=== PATIENT | female | born 1940 | race Caucasian/White ===

== ENCOUNTER 2017-02-14 06:04 | Day surgery (SDC) | payer MEDICARE, BC ==
[~2017-02-14 06:04] MED LIST: Buffered Lidocaine 0.9% SYRIN* 5 ML/SYR SYRINGE INTRADERM ONE; Sodium Citrate/Citric Acid* 15 ML UDC PO ONE
[2017-02-14] MEDS ORDERED: Sodium Citrate/Citric Acid* 15 ML UDC ONE ×2 (06:58→06:59)
[2017-02-14] MEDS ORDERED: ceFAZolin 2 GM PREMIX (*) 2 GM/50 ML BAG IVPB ONE (06:58)
[2017-02-14] MEDS ORDERED: Buffered Lidocaine 0.9% SYRIN* 5 ML/SYR SYRINGE ONE (06:59)
[2017-02-14] MEDS ORDERED: Bupivacaine 0.25% SDV* 30 ML ONE (07:23)
[2017-02-14] MEDS ORDERED: Midazolam* 1 MG/ML 2 ML VIAL (2 MG) ONE (07:28)
[2017-02-14] MEDS ORDERED: fentaNYL* 50 MCG/ML 2 ML VIAL (100 MCG VIAL) ONE (07:28)
[2017-02-14] MEDS ORDERED: Lidocaine 2% PF * 5 ML VIAL ONE (07:29)
[2017-02-14] MEDS ORDERED: Propofol* 10 MG/ML 20 ML BTL IV PUSH ONE ×2 (07:29→10:38)
[2017-02-14] MEDS ORDERED: Ondansetron INJ* 2 MG/ML VIAL IV PRN (07:49)
[2017-02-14] MEDS ORDERED: fentaNYL* 50 MCG/ML 2 ML VIAL (100 MCG VIAL) IV PRN (07:49)
[2017-02-14] MEDS ORDERED: Dexamethasone IV* 4 MG/ML 1 ML (4 MG) ONE (09:21)
[2017-02-14] MEDS ORDERED: Succinylcholine* 20 MG/ML 10 ML VIAL ONE (10:38)
[2017-02-14] MEDS ORDERED: HYDROcodone/ACETAMIN 5-325 MG* 1 TAB ONE (11:08)
[2017-02-14 13:32] VITALS: BP 151/79
--- NOTE | 2017-02-14 21:19 | RAD ---
INDICATION: Osteoarthritis LEFT second finger. COMPARISON: April 09, 2016 TECHNIQUE: 22.5 seconds fluoroscopy. FINDINGS: Spot image documents a reamer instrument at the distal aspect of the second metacarpal. IMPRESSION: Procedural fluoroscopy. CPT II Codes: 6045F
--- NOTE | 2017-02-15 08:56 | OP ---
DATE OF OPERATION: 02/14/17 [facility] DATE OF : 44 SURGEON: Mohit Nix MD DRUG DEPARTMENT WORKER: ANAHY Pedroza ANESTHESIOLOGIST: Dr. Hernandez. ANESTHESIA: General. PRE-OP DIAGNOSES: 1. Left index finger metacarpophalangeal joint arthrosis. 2. 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 POST-OP DIAGNOSES: 1. Left index finger metacarpophalangeal joint arthrosis. 2. 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 OPERATIVE PROCEDURE: 1. Left index finger metacarpophalangeal joint arthroplasty with Integra pyrocarbon implant. 2. Reconstruction of left index finger metacarpophalangeal joint radial collateral ligament with #2 FiberWire and local tissue. 3. Left index finger extensor tendon centralization. INDICATIONS: Deanna had an injury about 3 years back. She underwent, after a couple of months, a left index finger metacarpophalangeal joint radial collateral ligament reconstruction; this failed. The joint had gone on to be subluxated volarly and ulnarly, with ulnar deviation at the joint. When she flexes the finger down, the index finger rotates under or over the middle finger. There is associated pain and discomfort. I talked to her about her options. She wanted to proceed with surgery. She has been dealing with this for quite some time and has been following with me in the office for quite some time. She certainly understands the risks of implant failure or continued underlapping or overlapping of the fingers or need for further surgery. ESTIMATED BLOOD LOSS: 5 mL. COMPLICATIONS: None. FINDINGS: Severe full-thickness cartilage loss on both the metacarpal head and base of the proximal phalanx. DESCRIPTION OF PROCEDURE: Deanna was seen in the preoperative holding area. The correct side, site, and procedure were identified. We came back to the operating room and the arm was then prepped and draped in the usual fashion. A time-out was performed. The arm was exsanguinated with the Esmarch and the tourniquet inflated to 250 mmHg. I used her prior dorsal MCP joint incision, which was a longitudinal incision going right over the dorsum of the joint. Full-thickness flaps were raised off of the extensor mechanism. The EIP tendon was completely subluxated into the ulnar gutter. The ulnar sagittal band was released. The attenuated tissue between the EDC and the EIP tendons was debrided. The capsule was incised longitudinally and reflected back radially and ulnarly. The metacarpal head and joint was invisible. There was full-thickness cartilage loss throughout the entirety of the joint. I went ahead and placed my guide pin and placed a guide for the Integra pyrocarbon MCP replacement. This was confirmed on fluoroscopy to be in the correct position. I did place the drill guide and made a drill cut just distal to the ulnar collateral ligament and radial collateral ligament attachments. The radial collateral ligament was obviously very attenuated. The metacarpal head was resected. I then placed my guide. I then used the theron to open up the base of the proximal phalanx in the center- center position. A starting guide was placed and confirmed on fluoroscopy. A drill guide was placed and a cut was made. I only resected a millimeter or two off the base of the proximal phalanx. The redundant synovial tissue was excised. I then broached up the proximal phalanx to a size 30. I then went ahead and I did use the theron to create an appropriate cortical window through the subchondral bone proximally. I then broached up to a size 30 metacarpal implant. The position of all of the broaching was confirmed with fluoroscopy. After I had selected the appropriate sized implant, I went ahead and removed the broaches. I then used the 1.6 mm drill to make a drill hole on the radial side of the both the metacarpal head and base of the proximal phalanx at the 11 o'clock and 7 o'clock positions. I placed a #2 FiberWire through the drill holes in a figure- of-eight fashion. Once I had the FiberWire in place, I went ahead and placed my arthroplasty implant in standard fashion. The finger was set in the appropriate position and the #2 FiberWire was tensioned and tied off. I then took my #3 Ethibond suture and augmented this with repair of the local tissue that was present, to complete the radial collateral ligament reconstruction. At this point, I went ahead and irrigated out the wound. The finger was moving very nicely. We had turned back just the right amount volarly and had a very nice fit of the implant. The MCP joint hyperextended about 10 degrees, flexed down easily. I then went ahead and closed the capsule with a 4-0 Vicryl suture with the knot buried. The extensor tendons were then centralized by releasing the radial sagittal band and then suturing the EDC to the EIP to centralize the EIP. I then closed the radial sagittal band in pants- over-vest fashion to centralize the extensor tendon. With the extensor tendon centralized and the finger in a very nice position and the radial collateral ligament very stable on exam, I went ahead and closed the skin with 4-0 Monocryl suture. The wound was infiltrated with 0.25% plain Marcaine. The wound was dressed with Xeroform, 4x4's, sterile Webril and then a splint was placed holding the MCP joint in full extension and 10 degrees of flexion for allowing for some motion at the PIP joint and DIP joints. The radial collateral ligament was protected by the splint. The tourniquet was deflated and the hand pinked up immediately. She was then woken up and taken to the recovery room in stable condition. [id number]/[facility] #: [id number] WIL
== END 2017-02-14 14:28 | disposition home or self-care (01) ==
LOC: OR 06:04
PROVIDERS: ATTEND Orthopaedic Surgery Hand Surgery
DX: M19.042 Primary osteoarthritis, left hand (principal); S63.411 Traumatic rupture of collateral ligament of left index finger at metacarpophalangeal and interphalangeal joint; X58.XXXD Exposure to other specified factors, subsequent encounter; Y92.9 Unspecified place or not applicable; I10 Essential (primary) hypertension; E78.00 Pure hypercholesterolemia, unspecified; K21.9 Gastro-esophageal reflux disease without esophagitis; M19.90 Unspecified osteoarthritis, unspecified site; F32.9 Major depressive disorder, single episode, unspecified; Z87.891 Personal history of nicotine dependence
CPT/HCPCS: 73140; A9270-GY; C1776; J0330; J0690; J1100; J2250; J2704; J3010

== ENCOUNTER 2019-02-15 09:48 | Day surgery (SDC) | payer MEDICARE, BC ==
[~2019-02-15 09:48] MED LIST changes: -Buffered Lidocaine 0.9% SYRIN* 5 ML/SYR SYRINGE INTRADERM ONE; +Buffered Lidocaine 1% SYRIN* 1 ML/SYRINGE INTRADERM ONE; +Lactated Ringers 1000 ML Bag* 1,000 ML IV SCH
[2019-02-15] MEDS ORDERED: Sodium Citrate/Citric Acid* 15 ML UDC ONE (10:02)
[2019-02-15] MEDS ORDERED: ceFAZolin 2 GM in NS PREMIX(*) 2 GM/100 ML BAG IVPB ONE (10:02)
[2019-02-15] MEDS ORDERED: Famotidine IV* 10 MG/ML 2 ML (20 mg) ONE (10:19)
[2019-02-15] MEDS ORDERED: Bupivacaine 0.25% SDV* 30 ML ONE (10:53)
[2019-02-15] MEDS ORDERED: Lidocaine 2% PF * 5 ML VIAL ONE (10:59)
[2019-02-15] MEDS ORDERED: Propofol* 10 MG/ML 20 ML BTL ONE ×2 (10:59→11:36)
[2019-02-15] MEDS ORDERED: fentaNYL* 50 MCG/ML 2 ML VIAL (100 MCG VIAL) ONE ×2 (11:03→12:31)
[2019-02-15] MEDS ORDERED: Dexamethasone IV* 4 MG/ML 1 ML (4 MG) ONE (11:36)
[2019-02-15] MEDS ORDERED: Succinylcholine* 20 MG/ML 10 ML VIAL ONE (11:36)
[2019-02-15] MEDS ORDERED: Ondansetron INJ* 2 MG/ML VIAL ONE (12:33)
[2019-02-15] MEDS ORDERED: Ketorolac INJ* 30 MG/ML 1 ML VIAL ONE (12:33)
[2019-02-15] MEDS ORDERED: fentaNYL* 50 MCG/ML 2 ML VIAL (100 MCG VIAL) IV PRN (12:57)
[2019-02-15] MEDS ORDERED: Naloxone* 0.4 MG/ML 1 ML VIAL IV PRN (12:57)
[2019-02-15 14:37] VITALS: BP 169/65
--- NOTE | 2019-02-15 16:45 | OP ---
DATE OF OPERATION: 02/15/19 [facility] DATE OF : 44 SURGEON: Mohit Nix MD MAGNETIZER: ANAHY Pedroza ANESTHESIOLOGIST: Dr. Garcia. ANESTHESIA: General. PRE-OP DIAGNOSIS: Failed left index finger metacarpophalangeal joint Pyrocarbon arthroplasty with radial extensor tendon subluxation and attenuation of the ulnar collateral ligament. POST-OP DIAGNOSIS: Failed left index finger metacarpophalangeal joint Pyrocarbon arthroplasty with radial extensor tendon subluxation and attenuation of the ulnar collateral ligament. OPERATIVE PROCEDURE: 1. Left index finger revision metacarpophalangeal joint arthroplasty with an Integra silicone MCP joint arthroplasty. 2. Repair of the left index finger MCP joint ulnar collateral ligament. 3. Left index finger extensor tendon realignment. 4. Removal of left index finger MCP joint Pyrocarbon arthroplasty implant. INDICATIONS: Ms. Rome is 78. She has the aforementioned conditions. When she extends the fingers, it pronates and radially deviates significantly. We had talked about her treatment options and she wished to proceed with surgery. She understands there is a risk of an incomplete or imperfect correction. She wants to proceed. ESTIMATED BLOOD LOSS: 2 mL. COMPLICATIONS: None. FINDINGS: See above and below. DESCRIPTION OF PROCEDURE: Ms. Rome was seen in the preoperative holding area. The correct site, side, and procedure were identified. We came back to the operating room, the arm was prepped and draped in the usual fashion. A time- out was performed. The arm was exsanguinated and the forearm tourniquet inflated to 225 mmHg. I reopened her prior dorsal incision which had curved around the radial aspect of the joint. Full-thickness flaps were raised off the extensor tendon. The sagittal bands were preserved. The ulnar sagittal band was extremely attenuated. The radial sagittal band was tight. I went ahead and released the radial sagittal band. The ulnar sagittal band was released as well, had good visualization of both the radial and ulnar collateral ligaments. The caps over the dorsum of the joint over the Pyrocarbon implant was released. I went ahead and flexed the finger down and the metacarpal component came out easily. I then in like manner, released the soft tissue around the proximal phalanx implant and went ahead and removed that. There is a little bit of lobo-colored synovial tissue surrounding the implant that was all excised with the rongeur. At this point, I went ahead and used the broaches for the implants and selected the size 30. The trial 30 was placed. Looked like a good fit. I went ahead and removed the trial. I then placed a 2-0 FiberWire suture going through the bone on the mid axial aspect of the proximal phalanx. This was mattress suture taken into the bone and back out of the bone with a good several millimeters of bite on the bone on the inner aspect of the proximal phalanx. In like manner, I took a second 2-0 FiberWire suture and I started down around the 7 o'clock position and I passed it into the bone at the 5 o'clock position and passed it back out of the bone at about the 3 o'clock position. Both of these sutures were then held tightly and I irrigated out the canal and I placed a size 30 MCP joint silicone arthroplasty using standard technique not touching the implant with the gloves. With the implant in, I went ahead and first whipstitched out my my ulnar collateral ligament and then tied this off. This was done using the 2-0 FiberWire suture. This really tightened up the ulnar collateral ligament and brought the finger out of radial deviation that was siting very nicely adjacent to the middle finger. I then took my 2-0 FiberWire suture on the radial aspect and brought that up and out the dorsum of the mid portion of the second metacarpal neck. When I pulled this tight, this really took the finger out of pronation and back into neutral. I wanted to get into about 10 degrees of supination, but I got it back to neutral. That suture was then tied off. At this point, I could do a nice tenodesis and flex and extend the finger. It was not underlapping the middle finger as it previously had been done. It was sitting just gently radially, deviated may be 5 or 10 degrees. Overall, I was very pleased with the alignment. With the collateral ligaments repaired and the new implant in, this largely had corrected a lot of the extensor tendon malalignment. I did go ahead and suture down my ulnar sagittal band to the ulnar aspect of the extensor tendon. There really was not any radial sagittal band to sew down. I flexed and extended the fingers multiple times. There was absolutely no extensor tendon subluxation. I thought the extensor tendons had been very nicely realigned. At this point, the wound was irrigated out. The skin was closed with 4-0 nylon suture. I had already blocked the finger proximally with 0.25% plain Marcaine at the beginning of the case. The wound was dressed with Xeroform, 4x4s, sterile Webril, and then a plaster short-arm splint wrapping around the radial aspect of the index finger was applied. This was done with the hand in the intrinsic plus position. The tourniquet was deflated. The finger pinked up immediately. She was taken to the recovery room in stable condition. [id number]/[facility] #: [id number] WIL
== END 2019-02-15 15:20 | disposition home or self-care (01) ==
LOC: OREAST 09:48
PROVIDERS: ATTEND Orthopaedic Surgery Hand Surgery
DX: M19.042 Primary osteoarthritis, left hand (principal); S63.411 Traumatic rupture of collateral ligament of left index finger at metacarpophalangeal and interphalangeal joint; X58.XXXS Exposure to other specified factors, sequela; Y92.9 Unspecified place or not applicable; I10 Essential (primary) hypertension; K21.9 Gastro-esophageal reflux disease without esophagitis; F41.8 Other specified anxiety disorders; E78.00 Pure hypercholesterolemia, unspecified; Z87.891 Personal history of nicotine dependence
CPT/HCPCS: 88300; A9270-GY; J0330; J0690; J1100; J1885; J2405; J2704; J3010; J3490; L8630